=== PATIENT | female | born 1950 | race Caucasian/White ===

== ENCOUNTER 2018-07-05 11:29 | Outpatient (CLI) | payer MEDICARE ==
--- NOTE | 2018-07-05 13:01 | RAD ---
LEFT HUMERUS 2 VIEWS: DATE: 07/05/2018. COMPARISON: None. HISTORY: Injury, trauma, pain. FINDINGS: There is a comminuted fracture involving the proximal left humerus. There are multiple oblique fract ure lines and the distal fracture fragment is medially displaced and medially angulated. There is relative lucency within the medullary space in this region of the humerus, significance unce rtain. This may be technical in nature. An underlying lytic bone lesion is a less likely possibilit y. IMPRESSION: Comminuted displaced and angulated left humerus fracture. Medullary lucency in this region could sig nify an underlying lytic lesion or could be technical in nature. POS: [facility]
== END 2018-07-05 11:30 | disposition home or self-care (01) ==
LOC: NAV RAD 11:29
PROVIDERS: ATTEND Internal Medicine
DX: S49.92XA Unspecified injury of left shoulder and upper arm, initial encounter (principal); S42.202A Unspecified fracture of upper end of left humerus, initial encounter for closed fracture